=== PATIENT | male | born 1955 | race Caucasian/White ===

== ENCOUNTER → 2018-02-16 07:41 | Outpatient (CLI) | payer OTHER, SELFPAY ==
[2018-02-16 09:48] LABS: Add Manual Diff / Slide Review NO; Basophils Percent Auto 0.5 % (0-2); Eosinophils Percent Auto 3.2 % (2-4); Hematocrit 39.9 % (41-53); Hemoglobin 14.1 g/dL (13.5-17.5); Lymphocytes Percent Auto 39.8 % (25-40); Mean Corpuscular HGB Conc 35.2 % (30-36); Mean Corpuscular Hemoglobin 29.3 PG (26-34); Mean Corpuscular Volume 83.4 fL (80-100); Monocytes Percent Auto 8.8 % (3-14); Neutrophils Absolute Auto 2000 /uL (3000-5900); Neutrophils Percent Auto 47.7 % (50-75); Platelet Count 146 X10^3/uL (150-400); Red Blood Cell Count 4.79 X10^6/uL (4.5-5.9); Red Cell Distribution Width 12.8 % (11.6-14.8); White Blood Cell Count 4.1 X10^3/uL (4.5-11.0)
[2018-02-16 10:33] LABS: Alanine Aminotransferase 49 IU/L (21-72); Albumin 3.8 g/dL (3.5-5.0); Albumin Globulin Ratio 1.4 (1.0-2.8); Alkaline Phosphatase 97 U/L (38-126); Aspartate Aminotransferase 32 IU/L (17-59); BUN Creatinine Ratio 22.2 (6-22); Bilirubin Total 0.4 mg/dL (0.2-1.3); Blood Urea Nitrogen 20 mg/dL (9-20); Calcium 8.6 mg/dL (8.4-10.2); Carbon Dioxide 27 mmol/L (22-32); Chloride 105 mmol/L (98-107); Cholesterol 147 mg/dL (140-199); Estimated Glomerular Filt Rate > 60.0 mL/min (>60); Globulin 2.8 g/dL (1.7-4.1); Glucose 94 mg/dL (80-110); HDL Cholesterol 35 mg/dL (40-60); HEMOLYSIS < 15 (0-50); LDL Cholesterol Calculated 86 mg/dL (<100); Potassium 3.9 mmol/L (3.4-5.1); Sodium 142 mmol/L (137-145); Total Protein 6.6 g/dL (6.3-8.2); Triglycerides 130 mg/dL (35-150)
[2018-02-16 10:45] LABS: TSH w/ Reflex to FT4 2.53 uIU/mL (0.47-4.68)
[2018-02-16 10:49] LABS: Prostate Specific Antigen Scrn 0.529 ng/mL (0.1-4.0)
== END ==
PROVIDERS: PCP Internal Medicine; Visit Provider Internal Medicine
DX: Z00.00 Encounter for general adult medical examination without abnormal findings (principal); Z12.5 Encounter for screening for malignant neoplasm of prostate
CPT/HCPCS: 36415; 80053; 80061; 84443; 85025; G0103

== ENCOUNTER → 2020-10-16 09:30 | Outpatient (CLI) | payer OTHER, SELFPAY ==
[2020-10-16 10:49] LABS: COVID19 -Nasal RAPID Negative (Negative)
== END ==
PROVIDERS: PCP Internal Medicine; Visit Provider Nurse Practitioner Family
DX: Z01.812 Encounter for preprocedural laboratory examination (principal); Z20.822 Contact with and (suspected) exposure to COVID-19
CPT/HCPCS: 87635

== ENCOUNTER 2020-10-18 14:06 | Day surgery (SDC) | payer OTHER, SELFPAY ==
[2020-10-18] VITALS (7 sets, daily range): BP systolic 102–130; BP diastolic 57–83; PULSE 71–81; RESP 12–95; TEMP 36.3–36.6; O2SAT 16–96; BMI 34.4
--- NOTE | 2020-10-18 | PATH_ITS ---
[facility] Accession Number: [id number] . 01 Material submitted: . PART A: colon - ASCENDING COLON POLYP 2MM PART B: colon - TRANSVERSE COLON POLYP 2MM PART C: sigmoid colon - SIGMOID COLON POLYP 2MM . 01 Clinical history: . C: POLYP 2MM X2 SCREENING COLONOSCOPY . 02 Diagnosis: A. Ascending Colon, Polyp, 2 MM, Biopsy: Inflammatory polyp. . B. Transverse Colon, Polyp, 2 MM, Biopsy: Inflammatory polyp. Additional levels were examined. . C. Sigmoid Colon, Polyps, 2 MM, Biopsies: Hyperplastic polyps. BFI 10/24/2020 1327 Local . 02 Electronically signed: . Radha Aiken MD, Pathologist NPI- [id number] . 01 Gross description: . Part A: ASCENDING COLON POLYP 2MM: Received in formalin is 1 fragment(s) of sanders, soft tissue measuring 0.3 x 0.2 x 0.2 cm submitted entirely in 1 cassette(s) Part B: TRANSVERSE COLON POLYP 2MM: Received in formalin is 1 fragment(s) of sanders, soft tissue measuring 0.5 x 0.2 x 0.2 cm submitted entirely in 1 cassette(s) Part C: SIGMOID COLON POLYP 2MM: Received in formalin are 3 fragment(s) of sanders, soft tissue measuring 0.2 x 0.2 x 0.2 cm to 0.2 x 0.2 x 0.2 cm submitted entirely in 1 cassette(s) /KUSUM 10/21/2020 1747 Local . 02 Pathologist provided ICD-10: K63.5 . 02 CPT . 574030, [id number], [id number] Performed at: [address], [place], [place] [id number] MD Salty Lopez MD Phone: [phone] Performed at: 02 [facility] [address] [place] [id number] MD Radha Aiken MD Phone: [phone]
--- NOTE | 2020-10-18 12:24 | PM.OP.ENDO ---
Operative Date/Time/Diagnoses Date of procedure: 10/18/20 Procedure Notes SCOAP/Timeout: 3:49 p.m. Procedure in detail: ENDOSCOPIST: Lanie Nur MD Anesthesiologist: Dr. Lockwood Sedation start time: 3:50 p.m. Sedation end time: 4:14 p.m. PROCEDURE: Colonoscopy with biopsy, cold INDICATIONS: 1. Screening for colon cancer MEDICATION: Levsin 0.125 mg sublingual, incremental doses of Versed and fentanyl until appropriate level sedation achieved. ASA CLASS: 2 CECAL WITHDRAWAL TIME: 14 minutes COMPLICATIONS: None. EXTENT OF PROCEDURE: Cecum. QUALITY OF PREP: Good with portions of liquid stool. PROCEDURE: Prior to insertion of the colonoscope, a digital rectal examination was accomplished with circumferential palpation of the distal rectal mucosa without significant findings being noted. The high-definition colonoscope was passed into the rectum in the usual fashion and advanced over to the cecum without difficulty. The ileocecal valve, appendiceal stoma, and medial wall all could be inspected and no abnormalities were seen. ASCENDING COLON: As the colonoscope was withdrawn, care was taken to expose and inspect the haustral folds and a 2 mm polyp was seen and removed with cold biopsy forceps, excellent hemostasis. HEPATIC FLEXURE: Normal, no polyps, diverticula or other abnormalities. TRANSVERSE COLON: 2 mm polyp removed with cold biopsy forceps. Otherwise, normal, no polyps, diverticula or other abnormalities. DESCENDING COLON: Normal, no polyps, diverticula or other abnormalities. SIGMOID COLON: 2 mm polyp removed with cold biopsy forceps, otherwise normal, no polyps, diverticula or other abnormalities. RECTUM: Normal. J maneuver was produced. There was no significant perianal disease. The J maneuver was broken. The remainder of the rectum was inspected and there was no external hemorrhoid disease. The scope was withdrawn. IMPRESSION: 1. Ascending polyp x1, 2 mm, removed with cold biopsy forceps 2. Transverse polyp x1, 2 mm, removed with cold biopsy forceps 3. Sigmoid polyp x1, 2 mm, removed with cold biopsy forceps PLAN: 1. Follow-up in clinic status post pathology results. The possibility of a missed lesion including a malignancy has been discussed with the patient previously. Potential alarm symptoms have been discussed and should be reported immediately.
[2020-10-18] MEDS: LACTATED RINGERS 1,000 ML 200 ML IV (15:25)
[2020-10-18] MEDS: HYOSCYAMINE 0.125 MG TABLET PO (15:29)
== END 2020-10-18 16:58 | disposition home or self-care (01) ==
PROVIDERS: PCP Internal Medicine; Referring Provider Student in an Organized Health Care Education/Training Program; Visit Provider Student in an Organized Health Care Education/Training Program
PROC: 0DJD8ZZ Inspection of Lower Intestinal Tract, Via Natural or Artificial Opening Endoscopic (ICD-10-PCS; CPT 45378; principal; 2020-10-18 15:15)
DX: Z12.11 Encounter for screening for malignant neoplasm of colon (principal); E66.9 Obesity, unspecified; G47.33 Obstructive sleep apnea (adult) (pediatric); J45.20 Mild intermittent asthma, uncomplicated; F41.9 Anxiety disorder, unspecified; K51.40 Inflammatory polyps of colon without complications
CPT/HCPCS: 45380

== ENCOUNTER → 2020-12-13 07:53 | Outpatient (CLI) | payer OTHER, SELFPAY ==
[2020-12-13] MEDS: COVID-19 VACC, Ad26(JANSSEN)/PF 0.5 ML IM (08:03)
== END ==
PROVIDERS: PCP Internal Medicine; Visit Provider Internal Medicine
DX: Z23 Encounter for immunization (principal)
CPT/HCPCS: 0031A; 91303

== ENCOUNTER → 2020-12-23 12:26 | Outpatient (CLI) | payer OTHER, SELFPAY ==
--- NOTE | 2020-12-23 12:29 | DI.RAD.S_ITS ---
PROCEDURE: XR KNEE LT 3V INDICATIONS: left knee pain TECHNIQUE: 3 views of the knee were acquired. COMPARISON: None. FINDINGS: Bones: No fractures or dislocations. No suspicious bony lesions. Soft tissues: No joint effusion. No suspicious soft tissue calcifications. IMPRESSION: No trauma. Slight medial compartment knee joint space narrowing. Dictated by: Shane Eng M.D. on 12/23/2020 at 13:06 Approved by: Shane Eng M.D. on 12/23/2020 at 13:07
== END ==
PROVIDERS: PCP Internal Medicine; Referring Provider Internal Medicine; Visit Provider Internal Medicine
DX: M25.562 Pain in left knee (principal)
CPT/HCPCS: 73562